=== PATIENT | male | born 1975 ===

== ENCOUNTER 2022-02-17 20:28 | Emergency (ER) | payer SELFPAY ==
[~2022-02-17] VITALS: Ht 173 cm; Wt 77.0 kg
[2022-02-17] MEDS ORDERED: BSS 15 ML IR ONE (21:00)
[2022-02-17] MEDS ORDERED: FLUORESCEIN (FLUOR-I-STRIPS) 1 MG STRP OU ONE (21:00)
[2022-02-17] MEDS ORDERED: TETRACAINE 0.5% OPHTH SOLN 4 ML BTL (SINGLE DOSE ONLY) OU ONE (21:00)
--- NOTE | 2022-02-17 21:07 | ED EENT ---
History of Present Illness General Chief Complaint: Eye Problems Stated Complaint: METAL SHAVING IN EYE Nursing Triage Note: PT AMB TO ED BY POV WITH C/O EYE DISCOMFORT. PT REPORTS HE BELIEVES HE GOT A PIECE OF METAL IN HIS EYE. REPORTS HE WAS SCRAPPING METAL YESTERDAY AND BEGAN HAVING SOME DISCOMFORT IN L EYE. DISCOMFORT AND REDNESS WORSE TODAY. DENIES ANY VISION CHANGES OR LIGHT SENSITIVITY. PT REPORTS HE HAD DAUGHTER ATTEMPT TO GET THE OBJECT OUT OF HIS EYE AND IT MADE THE DISCOMFORT WORSE. Source: patient Exam Limitations: no limitations History of Present Illness Date Seen by Provider: Feb 17, 2022 Time Seen by Provider: 20:48 Allergies and Home Medications Allergies Coded Allergies: No Known Drug Allergies (Unverified , 02/17/22) Past Nmabrmo-Togibh-Mdbxhn Hx Patient Social History Tobacco Use?: No Use of E-Cig and/or Vaping dev: No Substance use?: No Alcohol Use?: Yes Alcohol type: Beer Alcohol Frequency: Several times a month Pt feels they are or have been: No Immunizations Up To Date Influenza Vaccine Up-to-Date: No; Not Current Past Medical History Surgery/Hospitalization HX: DENIES Physical Exam Vital Signs Vital Signs - First Documented 02/17/22 20:37 Temp 36.6 Pulse 74 Resp 16 B/P (MAP) 188/118 (141) Pulse Ox 98 O2 Delivery Room Air Height, Weight, BMI Height: '" Weight: lbs. oz. kg; 25.00 BMI Method: Progress/Results/Core Measures Results/Orders My Orders Orders - CANDICE DEL [employer] Tetracaine 0.5% Ophth Milvia Sdv (Tetracai (02/17/22 21:00) Fluorescein Strips (Rncje-V-Aebekc) (02/17/22 21:00) Balanced Salt Irrigation Soln (Bss Irrig (02/17/22 21:00) Medications Given in ED Current Medications Medications Dose Ordered Sig/Mikayla Route Start Time Stop Time Status Last Admin Dose Admin Balanced Salt Solution 15 ml ONCE ONCE IR 02/17/22 21:00 02/17/22 21:01 DC 02/17/22 20:56 15 ML Fluorescein Sodium 1 mg ONCE ONCE OU 02/17/22 21:00 02/17/22 21:01 DC 02/17/22 20:56 1 MG Tetracaine HCl 4 ml ONCE ONCE OU 02/17/22 21:00 02/17/22 21:01 DC 02/17/22 20:55 4 ML Vital Signs/I&O 02/17/22 20:37 Temp 36.6 Pulse 74 Resp 16 B/P (MAP) 188/118 (141) Pulse Ox 98 O2 Delivery Room Air Blood Pressure Mean: 141 Departure Impression Primary Impression: Foreign body in conjunctival sac Additional Impression: Corneal abrasion Disposition: HOME, SELF-CARE Condition: Improved Departure-Patient Inst. Decision time for Depature: 21:05 Referrals: NO,LOCAL PHYSICIAN (PCP/Family) Primary Care Physician Patient Instructions: Foreign Body in Eye ED, Corneal Abrasion (DC) Add. Discharge Instructions: Plan: 1. Instill 2 drops of the antibiotic eyedrop in your eye every 4 hours until follow-up with ophthalmology of choice. Our local ophthalmology is Dr. Sanders's office, you can contact their office tomorrow to schedule close follow-up. Information provided below. 2. Return to the ER for any new, concerning, worsening symptoms. [email or web address] [address] [place] [address] ~3.5 ct All discharge instructions reviewed with patient and/or family. Voiced understanding. CANDICE DEL [employer] Feb 17, 2022 21:06
[2022-02-17 21:13] VITALS: BP 188/118
[2022-02-17] MEDS ORDERED: RX-TOBRA/DEXAMETH (TOBRADEX) OP. SUSP 2.5 ML BTL OP SCH (21:15)
== END 2022-02-17 21:13 | disposition home or self-care (01) ==
LOC: ER 20:31
DX: T15.12XA Foreign body in conjunctival sac, left eye, initial encounter (principal); Z28.310 Unvaccinated for COVID-19; W45.8XXA Other foreign body or object entering through skin, initial encounter
CPT/HCPCS: 99282